=== PATIENT | male | born 1965 | race American Indian/Alaskan Native ===

== ENCOUNTER 2016-04-11 16:11 | Emergency (ER) | payer MEDICARE ==
[~2016-04-11 16:11] MED LIST: MAGNESIUM SULFATE 2GM/50ML 50 ML IV ONE
[2016-04-11] MEDS ORDERED: PROVENTIL IH ONE ×2 (16:17→16:21)
[2016-04-11] MEDS ORDERED: ATROVENT IH ONE ×2 (16:17→16:21)
[2016-04-11] MEDS: DUONEB 0.5 MG-3 MG/3 ML SOLN IH ONE ×2 (16:21→18:25)
[2016-04-11] MEDS ORDERED: MAGNESIUM SULFATE 2GM/50ML 50 ML IV ONE (16:21)
[2016-04-11] MEDS ORDERED: DUONEB 0.5 MG-3 MG/3 ML SOLN IH ONE (18:03)
--- NOTE | 2016-04-11 19:17 | Emergency Department Report ---
HPI - General Chief Complaint: Dyspnea/Respdistress Time Seen by Provider: 04/11/16 17:47 - HPI HPI: The patient is a 50-year-old male who presents for evaluation of dyspnea. The patient has a history of COPD. The patient reports progressive shortness of breath and wheezing for the past 2 days. He states that it starts of breath became severe this a.m., and has been constant since, exacerbated with physical activity, and improved with rest. He shares that he ran out of his albuterol nebs. The patient denies fever, cough, CRP, hemoptysis, unilateral leg swelling , recent immobilization, history of DVT or PE, hx cancer. ED Past Medical Hx - Past Medical History Previous Medical History?: Yes Hx COPD: Yes Additional medical history: CHRONIC PAIN. HYPERTHYROID - Surgical History Past Surgical History?: Yes Hx Appendectomy: Yes Additional Surgical History: BILATERAL SHOULDER SURGERY - Social History Smoking Status: Unknown if ever smoked Substance Use Type: None - Medications Home Medications: Home Medications Medication Instructions Recorded Confirmed Last Taken Type Synthroid 150 mcg PO DAILY #30 03/26/16 04/11/16 04/11/16 Rx ALBUTEROL Inhaler [ProAir HFA 2 puff IH QID PRN #1 inhalation 04/11/16 Unknown Rx Inhaler] Ipratropium/Albuterol Sulfate 1 ampul IH Q6HR #120 ampul.neb 04/11/16 Unknown Rx [Duoneb 0.5 mg-3 mg/3 ml Soln] predniSONE [Deltasone] 20 mg PO QDAY #5 tab 04/11/16 Unknown Rx ED Review of Systems ROS: Stated complaint: JORGE Other details as noted in HPI Constitutional: denies: fever ENT: denies: throat or neck pain Respiratory: reports shortness of breath Cardiovascular: denies: chest pain Endocrine: denies unexplained weight loss or gain Gastrointestinal: denies: abdominal pain, nausea Genitourinary: denies: dysuria Musculoskeletal: denies: leg swelling Skin: denies: rash Neurological: denies: headache Hematological/Lymphatic: denies: easy bleeding or easy bruising Psych: denies sadness or hopelessness Physical Exam - Physical Exam Vital Signs: Vital Signs 04/11/16 04/11/16 04/11/16 16:15 16:20 17:00 Temperature 98.5 F Pulse Rate 116 H Pulse Rate [ 118 H Posterior Bilateral Upper Lobe] Respiratory 24 28 H Rate Respiratory 28 H 20 Rate [Posterior Bilateral Upper Lobe] Blood Pressure 160/100 Blood Pressure 160/100 [Right] O2 Sat by Pulse 94 95 Oximetry Physical Exam: General: well-nourished, well-developed, no acute distress Head: Normocephalic, atraumatic Eyes: normal sclera ENT: Mucous membranes are pink and moist Neck: trachea midline, neck supple, No neck stiffness, no cervical adenopathy Respiratory: Diminished breath sounds and wheezing present throughout lung watkins, no costal retractions, no respiratory distress Cardio: S1 and S2 present, no murmurs, rubs, gallops, capillary refill is brisk Abdomen: Normoactive bowel sounds, soft abdomen, no rigidity, no guarding or rebound tenderness Musc: No pitting edema Skin: No rash Neuro: no facial drooping, normal speech Psych: Normal affect ED Course Vital Signs 04/11/16 04/11/16 04/11/16 16:15 16:20 17:00 Temperature 98.5 F Pulse Rate 116 H Pulse Rate [ 118 H Posterior Bilateral Upper Lobe] Respiratory 24 28 H Rate Respiratory 28 H 20 Rate [Posterior Bilateral Upper Lobe] Blood Pressure 160/100 Blood Pressure 160/100 [Right] O2 Sat by Pulse 94 95 Oximetry ED Medical Decision Making - Medical Decision Making The patient was seen and examined by myself. Prior to arrival the patient received IV Solu-Medrol, IV magnesium, and a breathing treatment via EMS. The patient is placed on a quality assurance monitor chassis and continuous pulse ox. On initial evaluation, the patient was found to be in no distress, with low oxygen saturation of 86% on room air. The patient is placed on 5 L supplemental oxygenation. Evaluation orders were placed. The patient is given additional breathing treatments. X-ray of the chest is negative for pneumonia or other emergent disease process. The patient is reevaluated and found to remain with oxygen desaturation when weaned to room air. The patient was informed of decision to admit to the hospital for continued treatment and close monitoring. The patient declined admission. He was informed of benefits of admission and risk of elopement AGAINST MEDICAL ADVICE, including . He is able to verbalize and repeat benefits versus risks. The patient is competent. The patient signs out AMA with prescriptions for albuterol and prednisone. Critical care attestation.: If time is entered above; I have spent that time in minutes in the direct care of this critically ill patient, excluding procedure time. ED Disposition Clinical Impression: Acute exacerbation of chronic obstructive pulmonary disease (COPD), Hypoxia Disposition: LEFT AGAINST MEDICAL ADVICE Is pt being admited?: No Does the pt Need Aspirin: No Condition: Serious Instructions: Chronic Obstructive Pulmonary Disease (ED) Prescriptions: Ipratropium/Albuterol Sulfate [Duoneb 0.5 mg-3 mg/3 ml Soln] 1 ampul IH Q6HR # 120 ampul.neb ALBUTEROL Inhaler [ProAir HFA Inhaler] 2 puff IH QID PRN #1 inhalation PRN Reason: Shortness Of Breath Referrals: PRIMARY CARE, [Primary Care Provider] - 3-5 Days Time of Disposition: 18:37
[2016-04-11 20:10] VITALS: BP 123/75
--- NOTE | 2016-04-12 08:03 | XRay Report ---
AP CHEST :04/11/16 CLINICAL: Dyspnea. COMPARISON:03/25/16 FINDINGS: Normal heart and pulmonary vasculature. The lungs are mildly hyperexpanded hyperlucent. A predominantly sclerotic lesion of the right proximal humerus has not been included on prior exams. The bones are otherwise normal. IMPRESSION: COPD and no acute cardiopulmonary process.Sclerotic lesion of the right proximal humerus. Recommend x-rays of the right humerus.
== END 2016-04-11 20:12 | disposition left against medical advice (07) ==
LOC: ED 16:11
DX: J44.1 Chronic obstructive pulmonary disease with (acute) exacerbation (principal); G89.29 Other chronic pain; E05.90 Thyrotoxicosis, unspecified without thyrotoxic crisis or storm; Z90.49 Acquired absence of other specified parts of digestive tract
CPT/HCPCS: 71010; 94640; 96365; 96375; 99285; J2930; J3475

== ENCOUNTER 2016-05-24 23:24 | Inpatient (IN) | payer MEDICARE ==
[2016-05-24] MEDS ORDERED: ATROVENT IH ONE (23:29)
[2016-05-24] MEDS ORDERED: PROVENTIL IH ONE (23:29)
--- NOTE | 2016-05-24 23:38 | Emergency Department Report ---
HPI - General Time Seen by Provider: 05/24/16 23:28 - HPI HPI: Room 23 The patient is a 50-year-old male presenting with a chief complaint of shortness of breath. The patient states she has had shortness of breath intermittently since last night. Shortness of breath worsened this evening prompting family to call EMS. EMS placed patient on CPAP as he was found to be hypoxic at home. Patient was administered Solu-Medrol 125 mg IV, magnesium sulfate 2 g IV and albuterol nebulizer en route. Patient still complains of shortness of breath. Patient denies chest pain. The patient missed a cough that is productive of clear sputum Location: Lungs Duration: Intermittent since yesterday Quality: Shortness of Breath Severity: Severe Modifying factors: [see above] Context: History of COPD Mode of transportation: [not driving] ED Past Medical Hx - Past Medical History Hx COPD: Yes (no home O2) Additional medical history: CHRONIC PAIN. HYPERTHYROID - Surgical History Hx Appendectomy: Yes Additional Surgical History: BILATERAL SHOULDER SURGERY - Family History Family history: no significant - Social History Smoking Status: Unknown if ever smoked Substance Use Type: None - Medications Home Medications: Home Medications Medication Instructions Recorded Confirmed Last Taken Type Synthroid 150 mcg PO DAILY #30 03/26/16 04/11/16 04/11/16 Rx ALBUTEROL Inhaler [ProAir HFA 2 puff IH QID PRN #1 inhalation 04/11/16 Unknown Rx Inhaler] Ipratropium/Albuterol Sulfate 1 ampul IH Q6HR #120 ampul.neb 04/11/16 Unknown Rx [Duoneb 0.5 mg-3 mg/3 ml Soln] predniSONE [Deltasone] 20 mg PO QDAY #5 tab 04/11/16 Unknown Rx ED Review of Systems ROS: Stated complaint: JORGE Other details as noted in HPI Comment: All other systems reviewed and negative Constitutional: denies: fever Eyes: denies: eye pain, eye discharge, vision change ENT: denies: ear pain, throat pain Respiratory: cough, shortness of breath, wheezing Cardiovascular: denies: chest pain, palpitations Endocrine: no symptoms reported Gastrointestinal: denies: abdominal pain, nausea, diarrhea Genitourinary: denies: urgency, dysuria Musculoskeletal: denies: back pain, joint swelling, arthralgia Skin: denies: rash, lesions Neurological: denies: headache, weakness, paresthesias Psychiatric: denies: anxiety, depression Hematological/Lymphatic: denies: easy bleeding, easy bruising Physical Exam - Physical Exam Physical Exam: GENERAL: The patient is well-developed well-nourished male sitting on stretcher receiving BiPAP. To be in moderate discomfort. [] HEENT: Normocephalic. Atraumatic. Extraocular motions are intact. Patient has moist mucous membranes. NECK: Supple. Trachea midline CHEST/LUNGS: Clear to auscultation. There is no respiratory distress noted. HEART/CARDIOVASCULAR: Regular. There is tachycardia. There is no gallop rub or murmur. ABDOMEN: Abdomen is soft, nontender. Patient has normal bowel sounds. There is no abdominal distention. SKIN: There is no rash. There is no diaphoresis. NEURO: The patient is awake, alert, and oriented. The patient is cooperative. The patient has normal speech MUSCULOSKELETAL: There is no evidence of acute injury. ED Course - Reevaluation(s) Reevaluation #1: 05/25/16 00:33 Patient states he is still doing okay. Informed that the patient refused ABG. The importance of the ABG has been expressed to the patient and he states he will consider it ED Medical Decision Making - Lab Data Result diagrams: 05/24/16 23:44 05/24/16 23:44 Laboratory Tests 05/24/16 05/24/16 05/24/16 23:44 23:44 23:44 WBC 11.8 H RBC 4.45 Hgb 13.6 Hct 41.3 MCV 93 MCH 31 MCHC 33 RDW 13.5 Plt Count 207 Lymph % (Auto) 35.0 Gosper % (Auto) 5.9 Eos % (Auto) 10.1 H Baso % (Auto) 0.7 Lymph # 4.1 Gosper # 0.7 Eos # 1.2 H Baso # 0.1 Seg Neutrophils % 48.3 Seg Neutrophils # 5.7 PT 12.5 INR 0.94 APTT 28.9 Sodium 138 Potassium 3.9 Chloride 96.8 L Carbon Dioxide 28 Anion Gap 17 BUN 9 Creatinine 0.8 Estimated GFR > 60 BUN/Creatinine Ratio 11.25 Glucose 126 H Calcium 8.5 Total Creatine Kinase 269 H CK-MB (CK-2) 3.0 CK-MB (CK-2) Rel Index 1.1 Troponin T < 0.010 NT-Pro-B Natriuret Pep 40.80 - Radiology Data Radiology results: image reviewed (chest x-ray) interpreted by me: Chest x-ray-no focal infiltrates, no pneumothorax - Differential Diagnosis COPD exacerbation, pneumonia, CHF Critical care attestation.: If time is entered above; I have spent that time in minutes in the direct care of this critically ill patient, excluding procedure time. ED Disposition Clinical Impression: COPD with exacerbation, Difficulty breathing Disposition: OP ADMITTED IP TO THIS HOSP Is pt being admited?: Yes Does the pt Need Aspirin: Yes Condition: Stable Instructions: Chronic Obstructive Pulmonary Disease (ED) Referrals: PRIMARY CARE, [Primary Care Provider] - 3-5 Days Time of Disposition: 00:36 (hospitalist notified)
[2016-05-24 23:58] LABS: Basophils % (Auto) 0.7 % (0.0-1.8); Eosinophils % (Auto) 10.1 % (0.0-4.3); Hematocrit 41.3 % (35.5-45.6); Hemoglobin 13.6 gm/dl (11.8-15.2); Mean Corpuscular HGB Conc 33 % (32-34); Mean Corpuscular Hemoglobin 31 pg (28-32); Mean Corpuscular Volume 93 fl (84-94); Platelet Count 207 K/mm3 (140-440); Red Blood Count 4.45 M/mm3 (3.65-5.03); Red Cell Distribution Width 13.5 % (13.2-15.2); White Blood Count 11.8 K/mm3 (4.5-11.0)
[2016-05-25 00:08] LABS: INR 0.94 (0.87-1.13)
[2016-05-25 00:09] LABS: Partial Thromboplastin Time 28.9 Sec. (24.2-36.6)
[2016-05-25 00:21] LABS: Anion Gap 17 mmol/L; BUN/Creatinine Ratio 11.25; Blood Urea Nitrogen 9 mg/dL (9-20); Calcium 8.5 mg/dL (8.4-10.2); Carbon Dioxide 28 mmol/L (22-30); Chloride 96.8 mmol/L (98-107); Creatine Kinase 269 units/L (55-170); Glucose 126 mg/dL (75-100); Potassium 3.9 mmol/L (3.6-5.0); Sodium 138 mmol/L (137-145)
--- NOTE | 2016-05-25 01:44 | History and Physical Report ---
History of Present Illness Date of examination: 05/25/16 History of present illness: 50-year-old man with a history of COPD, hypothyroidism comes emergency room with complains of shortness breath started last night. He has been using his nebulizer treatments without any improvement. His symptoms worsened to night so he called EMS. Patient was found in respiratory distress, he was given steroids, magnesium Place on CPAP. Also complaining of a cough productive of white phlegm, no fever or chills. In the emergency room he was given nebulizer treatments and BiPAP. Patient refuses ABG, right now he is refusing to wear his BiPAP Patient denies chest pain, palpitation, abdominal pain, hematochezia, dysuria, frequency, focal weakness, dysarthria, fever chills, polydipsia polyuria, hot or cold intolerance, easy bruisability, or rash or bleeding from mucosal membrane, rhinorrhea, epistaxis, earache, tinnitus, blurry vision, eye discharge , anxiety, depression. Other review of systems negative PAST SURGICAL HISTORY: Rotator cuff SOCIAL HISTORY: Smoke half pack a day, no alcohol or drugs FAMILY HISTORY: Hypertension Medications and Allergies Allergies Allergy/AdvReac Type Severity Reaction Status Date / Time No Known Allergies Allergy Unverified 01/21/16 12:48 Home Medications Medication Instructions Recorded Confirmed Last Taken Type Synthroid 150 mcg PO DAILY #30 03/26/16 04/11/16 04/11/16 Rx ALBUTEROL Inhaler [ProAir HFA 2 puff IH QID PRN #1 inhalation 04/11/16 Unknown Rx Inhaler] Ipratropium/Albuterol Sulfate 1 ampul IH Q6HR #120 ampul.neb 04/11/16 Unknown Rx [Duoneb 0.5 mg-3 mg/3 ml Soln] predniSONE [Deltasone] 20 mg PO QDAY #5 tab 04/11/16 Unknown Rx Exam - Physical Exam Narrative exam: Gen. appearance: Patient lying in bed, no apparent distress HEENT: Normocephalic, atraumatic, pupils equally round and reactive to light, extraocular movement intact, and no sclericterus,. No JVD or thyromegaly or nodule,neck supple, no carotid bruit ,mucous membranes moist, no exudate or erythema Heart: S1, S2, regular rate and rhythm Lungs: Diffuse wheezing bilaterally, breathing comfortable Abdomen: Positive bowel sounds, nontender, nondistended, no organomegaly Extremity: No edema, cyanosis, clubbing Skin: No rash, nodules, warm, dry Neuro: Oriented 3, cranial nerves II-12 intact, speech is fluent, motor and sensory intact - Constitutional Vitals: Temp Pulse Resp BP Pulse Ox 97.6 F 114 H 16 114/77 95 05/24/16 23:30 05/25/16 01:23 05/25/16 01:23 05/25/16 01:23 05/25/16 01:23 Results - Labs CBC & Chem 7: 05/24/16 23:44 05/24/16 23:44 Labs: Abnormal lab results 05/24/16 05/24/16 Range/Units 23:44 23:44 WBC 11.8 H (4.5-11.0) K/mm3 Eos % (Auto) 10.1 H (0.0-4.3) % Eos # 1.2 H (0.0-0.4) K/mm3 Chloride 96.8 L (98-107) mmol/L Glucose 126 H (75-100) mg/dL Total Creatine Kinase 269 H (55-170) units/L - Imaging and Cardiology EKG: image reviewed Chest x-ray: image reviewed Assessment and Plan COPD exacerbation Hypothyroidism Admits medicine Start high-dose steroids, nebulizer treatment, we will discontinue BiPAP at patient's request Check cardiac enzymes, continue outpatient medications Start DVT prophylaxis
[2016-05-25] MEDS ORDERED: MILK OF MAGNESIA PO PRN (01:45)
[2016-05-25] MEDS ORDERED: DULCOLAX PR PRN (01:45)
[2016-05-25] MEDS ORDERED: ZOFRAN IV PRN (01:45)
[2016-05-25] MEDS ORDERED: TYLENOL PO PRN (01:45)
[2016-05-25] MEDS ORDERED: DUONEB 0.5 MG-3 MG/3 ML SOLN IH SCH (02:00)
[2016-05-25 02:28] VITALS: BP 130/76
--- NOTE | 2016-05-25 03:16 | Event Note ---
Date: 05/25/16 Patient signed out AGAINST MEDICAL ADVICE
[2016-05-25] MEDS ORDERED: SYNTHROID PO SCH (06:00)
--- NOTE | 2016-05-25 07:27 | XRay Report ---
AP chest History: Shortness of breath. Findings: Moderate hyperinflation is unchanged since 04/11/16. The lungs are clear. Normal heart and mediastinal structures. Normal bony thorax. Impression: Emphysematous changes. No acute process.
[2016-05-25] MEDS ORDERED: LOVENOX SUB-Q SCH (10:00)
== END 2016-05-25 02:43 | disposition left against medical advice (07) | DRG 192 ==
LOC: ED 23:24 → 3A 05-25 01:45
PROVIDERS: ADMIT Internal Medicine; ATTEND Internal Medicine
PROC: 5A09357 Assistance with Respiratory Ventilation, Less than 24 Consecutive Hours, Continuous Positive Airway Pressure (ICD-10-PCS; principal; 2016-05-25)
DX: J44.1 Chronic obstructive pulmonary disease with (acute) exacerbation (principal); E03.9 Hypothyroidism, unspecified; Z53.29 Procedure and treatment not carried out because of patient's decision for other reasons; F17.210 Nicotine dependence, cigarettes, uncomplicated; Z82.49 Family history of ischemic heart disease and other diseases of the circulatory system; Z90.49 Acquired absence of other specified parts of digestive tract
CPT/HCPCS: 36415; 71010; 80048; 82550; 82553; 83880; 84484; 85025; 85610; 85730; 87040; 94644; 94760

== ENCOUNTER 2017-03-26 14:25 | Emergency (ER) | payer MEDICARE ==
[2017-03-26 14:35] VITALS: BP 135/79
[2017-03-26 15:08] LABS: Basophils % (Auto) 0.4 % (0.0-1.8); Eosinophils # (Auto) 0.2 K/mm3 (0.0-0.4); Hematocrit 39.3 % (35.5-45.6); Hemoglobin 13.1 gm/dl (11.8-15.2); Lymphocytes # (Auto) 1.6 K/mm3 (1.2-5.4); Mean Corpuscular HGB Conc 33 % (32-34); Mean Corpuscular Hemoglobin 32 pg (28-32); Mean Corpuscular Volume 96 fl (84-94); Monocytes # (Auto) 0.4 K/mm3 (0.0-0.8); Monocytes % (Auto) 4.3 % (0.0-7.3); Platelet Count 161 K/mm3 (140-440); Red Cell Distribution Width 13.9 % (13.2-15.2)
[2017-03-26 15:19] LABS: BUN/Creatinine Ratio 11; Blood Urea Nitrogen 9 mg/dL (9-20); Calcium 8.6 mg/dL (8.4-10.2); Hemolysis Index 7
--- NOTE | 2017-03-26 15:47 | XRay Report ---
FINAL REPORT EXAM: XR CHEST ROUTINE 2V HISTORY: Shortness of breath TECHNIQUE: Frontal and lateral chest radiographs. PRIORS: None. FINDINGS: The lung bases were not completely included on the frontal view. The cardiomediastinal silhouette is normal. No focal consolidation. No pleural effusion. No pneumothorax. No acute osseous abnormality. IMPRESSION: No acute cardiopulmonary process.
[2017-03-26] MEDS ORDERED: DELTASONE PO ONE (19:16)
[2017-03-26] MEDS ORDERED: DUONEB *Not for PRN Use IH ONE (19:17)
--- NOTE | 2017-03-26 19:22 | Emergency Department Report ---
ED Asthma HPI - General Chief Complaint: Dyspnea/Respdistress Stated Complaint: SOB Time Seen by Provider: 03/26/17 18:55 Source: patient Mode of arrival: Ambulatory Limitations: No Limitations - History of Present Illness Initial Comments: 51-year-old male past medical history smoker, COPD presents with intermittent complaint of wheezing for the last 2 days. States he lost his albuterol Ventolin inhaler. Patient is awake alert and oriented 3 not in acute distress speaking in full sentences no audible wheezing or stridor. States that wheezing has decreased since earlier today. States that he needs a prescription for albuterol inhaler. Denies fever chills productive cough. States he is decreasing his smoking. No other complaints. Patient denies chest pain palpitations pleuritic chest pain. Patient fully lucid and conversant. MD Complaint: wheezing Onset/Timin -: days(s) Asthma History: childhood onset Severity: mild Context: ran out of meds Treatments Prior to Arrival: inhaled bronchodilator - Related Data Current Asthma Therapy: none, inhaled bronchodilator Previous Rx's Medication Instructions Recorded Last Taken Type Synthroid 150 mcg PO DAILY #30 03/26/16 04/11/16 Rx ALBUTEROL Inhaler [ProAir HFA 2 puff IH QID PRN #1 inhalation 04/11/16 Unknown Rx Inhaler] Ipratropium/Albuterol Sulfate 1 ampul IH Q6HR #120 ampul.neb 04/11/16 Unknown Rx [DUONEB *Not for PRN Use*] predniSONE [Deltasone] 20 mg PO QDAY #5 tab 04/11/16 Unknown Rx Albuterol Sulfate [Ventolin Hfa] 1 puff IH Q4H PRN #1 hfa.aer.ad 03/26/17 Unknown Rx Azithromycin [Zithromax Z-ABRAHAM] 250 mg PO QDAY #1 03/26/17 Unknown Rx Fluticasone/Salmeterol [Advair 1 puff INHALATION Q12H #1 03/26/17 Unknown Rx 250-50 Diskus] blst.w.dev predniSONE [Deltasone] 40 mg PO QDAY #10 tab 03/26/17 Unknown Rx Allergies Allergy/AdvReac Type Severity Reaction Status Date / Time No Known Allergies Allergy Unverified 01/21/16 12:48 ED Review of Systems ROS: Stated complaint: SOB Other details as noted in HPI Constitutional: denies: chills, fever Eyes: denies: eye pain, eye discharge, vision change ENT: denies: ear pain, throat pain Respiratory: wheezing. denies: cough, shortness of breath Cardiovascular: denies: chest pain, palpitations Endocrine: no symptoms reported Gastrointestinal: denies: abdominal pain, nausea, diarrhea Genitourinary: denies: urgency, dysuria Musculoskeletal: denies: back pain, joint swelling, arthralgia Skin: denies: rash, lesions Neurological: denies: headache, weakness, paresthesias Psychiatric: denies: anxiety, depression Hematological/Lymphatic: denies: easy bleeding, easy bruising ED Past Medical Hx - Past Medical History Previous Medical History?: Yes Hx COPD: Yes (no home O2) Additional medical history: CHRONIC PAIN. HYPERTHYROID - Surgical History Past Surgical History?: Yes Hx Appendectomy: Yes Additional Surgical History: BILATERAL SHOULDER SURGERY - Social History Smoking Status: Current Every Day Smoker Substance Use Type: Alcohol, Prescribed - Medications Home Medications: Home Medications Medication Instructions Recorded Confirmed Last Taken Type Synthroid 150 mcg PO DAILY #30 03/26/16 04/11/16 04/11/16 Rx ALBUTEROL Inhaler [ProAir HFA 2 puff IH QID PRN #1 inhalation 04/11/16 Unknown Rx Inhaler] Ipratropium/Albuterol Sulfate 1 ampul IH Q6HR #120 ampul.neb 04/11/16 Unknown Rx [DUONEB *Not for PRN Use*] predniSONE [Deltasone] 20 mg PO QDAY #5 tab 04/11/16 Unknown Rx Albuterol Sulfate [Ventolin Hfa] 1 puff IH Q4H PRN #1 hfa.aer.ad 03/26/17 Unknown Rx Azithromycin [Zithromax Z-ABRAHAM] 250 mg PO QDAY #1 03/26/17 Unknown Rx Fluticasone/Salmeterol [Advair 1 puff INHALATION Q12H #1 03/26/17 Unknown Rx 250-50 Diskus] blst.w.dev predniSONE [Deltasone] 40 mg PO QDAY #10 tab 03/26/17 Unknown Rx ED Physical Exam - General Limitations: No Limitations General appearance: alert, in no apparent distress - Head Head exam: Present: atraumatic, normocephalic - Eye Eye exam: Present: normal appearance, PERRL, EOMI - ENT ENT exam: Present: mucous membranes moist - Neck Neck exam: Present: normal inspection - Respiratory Respiratory exam: Present: normal lung sounds bilaterally (there is no wheezing on auscultation bilaterally). Absent: respiratory distress - Cardiovascular Cardiovascular Exam: Present: regular rate, normal rhythm. Absent: systolic murmur, diastolic murmur, rubs, gallop - GI/Abdominal GI/Abdominal exam: Present: soft, normal bowel sounds - Rectal Rectal exam: Present: deferred - Extremities Exam Extremities exam: Present: normal inspection - Back Exam Back exam: Present: normal inspection - Neurological Exam Neurological exam: Present: alert, oriented X3 - Psychiatric Psychiatric exam: Present: normal affect, normal mood - Skin Skin exam: Present: warm, dry, intact, normal color. Absent: rash ED Course Vital Signs 03/26/17 14:32 Temperature 97.5 F L Pulse Rate 60 Respiratory 16 Rate Blood Pressure 135/79 O2 Sat by Pulse 100 Oximetry ED Medical Decision Making - Lab Data Result diagrams: 03/26/17 14:49 03/26/17 14:49 - Medical Decision Making A/P: Asthma exacerbation, reactive airway disease 1-refill on albuterol inhaler 2-short course prednisone 3-normal vital signs, patient does not have any audible wheezing or stridor or retractions before discharge. 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 ED Disposition Clinical Impression: Wheezing, Medication refill Reactive airway disease Qualifiers: Asthma severity: mild Asthma persistence: intermittent Asthma complication type : with acute exacerbation Qualified Code(s): J45.21 - Mild intermittent asthma with (acute) exacerbation Disposition: TO HOME OR SELFCARE Is pt being admited?: No Does the pt Need Aspirin: No Condition: Stable Instructions: Asthma (ED), Chronic Obstructive Pulmonary Disease (ED) Prescriptions: Albuterol Sulfate [Ventolin Hfa] 1 puff IH Q4H PRN #1 hfa.aer.ad PRN Reason: Wheezing Azithromycin [Zithromax Z-ABRAHAM] 250 mg PO QDAY #1 Fluticasone/Salmeterol [Advair 250-50 Diskus] 1 puff INHALATION Q12H #1 blst.w.dev predniSONE [Deltasone] 40 mg PO QDAY #10 tab Referrals: [facility] [Outside] - 3-5 Days Time of Disposition: 19:19
== END 2017-03-26 19:40 | disposition home or self-care (01) ==
LOC: ED 14:25
DX: Z76.0 Encounter for issue of repeat prescription (principal); J45.21 Mild intermittent asthma with (acute) exacerbation; J44.9 Chronic obstructive pulmonary disease, unspecified; G89.29 Other chronic pain; E05.90 Thyrotoxicosis, unspecified without thyrotoxic crisis or storm; F17.200 Nicotine dependence, unspecified, uncomplicated; Z98.890 Other specified postprocedural states
CPT/HCPCS: 36415; 71020; 80048; 85025; 93005; 93010; 99284; J7512